=== PATIENT | male | born 1995 | race Caucasian/White ===

== ENCOUNTER 2022-08-11 12:36 | Outpatient (CLI) | payer BC ==
[2022-08-11] MEDS ORDERED: Magnevist 469MG/ML 20 ML VIAL ONE (13:53)
== END 2022-08-11 12:37 | disposition home or self-care (01) ==
LOC: CSHMRI 12:36
PROVIDERS: ATTEND Psychiatry & Neurology Neurology
DX: G44.229 Chronic tension-type headache, not intractable (principal); Z86.69 Personal history of other diseases of the nervous system and sense organs
CPT/HCPCS: 70553; A9579